=== PATIENT | female | born 2005 | race Caucasian/White ===

== ENCOUNTER 2023-10-19 11:59 | Outpatient (CLI) | payer BC, SELFPAY | END 2023-10-19 12:00 | disposition home or self-care (01) | LOC: NFLDREF 10-30 14:31 | PROVIDERS: Visit Provider Nurse Practitioner Family | DX: R10.9 Unspecified abdominal pain (principal); R11.2 Nausea with vomiting, unspecified; K52.9 Noninfective gastroenteritis and colitis, unspecified; R11.0 Nausea | CPT/HCPCS: 87086 ==